=== PATIENT | male | born 1990 | race Caucasian/White ===

== ENCOUNTER 2020-01-01 13:45 | Emergency (ER) | payer OTHER, SELFPAY ==
--- NOTE | ~2020-01-01 | XR_ITS ---
EXAMINATION: XR chest 2V DATE: 01/01/2020 14:36 INDICATION: Weight loss TECHNIQUE: Frontal and lateral views of the chest are obtained COMPARISON: None available FINDINGS: The lungs are free of acute opacities. There is no pleural effusion or pneumothorax. The ca rdiomediastinal silhouette is normal. The visualized bones and soft tissues are unremarkable. IMPRESSION: 1. No acute cardiopulmonary abnormality. Reviewed, dictated and finalized at location A.
[2020-01-01 13:48] VITALS: BP 125/78; PULSE 73; RESP 18; TEMP 36.5; O2SAT 98
--- NOTE | 2020-01-01 14:00 | ED.ANXIETY ---
HPI - Anxiety General Chief Complaint: Anxiety Stated Complaint: Anxiety, weight loss Time Seen by Provider: 01/01/20 14:00 Source: patient Mode of arrival: ambulatory Limitations: no limitations History of Present Illness HPI narrative: Patient is a 29-year-old male with a history of anxiety who presents for evaluation of weight loss. Patient states he has had an unintended 15 pound weight loss over the past month. He states he does seem to have a decreased appetite due to the anxiety, but denies any increase in strenuous or exertional activity. States he is fairly active with daily hiking and walking. Patient denies any pain. No headache, chest pain, abdominal pain. He denies any nausea, vomiting or urinary symptoms. He denies any weakness or lethargy. States he is sleeping well. He reports that he is here to obtain routine blood work because the [facility] he follows with in [facility], and patient has been to many urgent care is to have also denied their ability to get any blood work for the patient. Patient denying any cough, fever or shortness of breath. No history of cancer. He has not noticed any swelling, lumps, or bumps anywhere. Related Data Home Medications Medication Instructions Recorded Confirmed No Home Medications 01/01/20 01/01/20 Allergies Allergy/AdvReac Type Severity Reaction Status Date / Time amoxicillin Allergy Hives Verified 01/01/20 13:59 Review of Systems Review of Systems: Narrative: CONSTITUTIONAL: Denies fever, chills, or sweats. EYES: Denies visual changes, redness, or discharge. ENT: Denies rhinorrhea, congestion, sore throat, or otalgia. CARDIOVASCULAR: Denies chest pain, palpitations, or edema. RESPIRATORY: Denies cough or dyspnea. GASTROINTESTINAL: Denies abdominal pain, nausea, vomiting, or diarrhea. GENITOURINARY: Denies dysuria or hematuria. SKIN: Denies rash or itching. MUSCULOSKELETAL: Denies back pain, joint pain, or myalgia. NEUROLOGIC: Denies headache, numbness, or weakness. PSYCHIATRIC: Reports anxiety without depression PMFSH Past Medical History Medical History Anxiety Social History Social History (Updated 01/01/20 @ 14:42 by [place] MD) Smoking status: Never smoker Alcohol intake: current Alcohol use details: Social, rarely Substance use: never Gender identity (if verbalized by the patient): Male Exam Narrative: Exam Narrative: GENERAL: Awake, alert, conversant HEAD: Normocephalic, atraumatic. EYES: PERRLA and EOMI. ENT: Nares clear, no rhinorrhea or epistaxis. Mucous membranes moist. NECK: Supple. No thyromegaly. CHEST: No respiratory distress, breathing even and non labored HEART: Regular rate, sinus rhythm ABDOMEN:Non distended, non tender EXTREMITIES: Normal range of motion. No edema. SKIN: Warm, dry, no rash. NEURO:No focal deficits. Alert and oriented x3. . EOMs intact without nystagmus. No facial droop/asymmetry noted bilaterally. Grimace intact. Intact sensation in face. Hearing intact bilaterally. Strength 5/5 bilateral upper extremities. Strength 5/5 bilateral lower extremities. Reflexes 2+ patellar. Ambulatory with a narrow base, steady gait, no ataxia. Course Vital Signs Vital signs: Vital Signs Temperature 36.5 C 01/01/20 13:48 Pulse Rate 73 01/01/20 13:48 Respiratory Rate 18 01/01/20 13:48 Blood Pressure 125/78 01/01/20 13:48 Pulse Oximetry 98 01/01/20 13:48 Temperature 36.5 C 01/01/20 13:48 Pulse Rate 59 L 01/01/20 15:03 Respiratory Rate 14 01/01/20 15:03 Blood Pressure 113/66 01/01/20 15:03 Pulse Oximetry 99 01/01/20 15:03 MDM - Anxiety MDM Narrative Medical decision making narrative: Patient presented for evaluation of unintended weight loss. He does report increase in anxiety which he deals with and has a physician he follows with for this. Due
--- NOTE | 2020-01-01 14:26 | ECG_ITS ---
Measurements Intervals [place] Rate: 55 P: 59 AL: 185 QRS: 72 QRSD: 105 T: 5 QT: 367 QTc: 351 Interpretive Statements SINUS BRADYCARDIA BORDERLINE ECG Electronically Signed On 01-01-2020 20:06:58 CDT by Arnoldo Francis D.O.
[2020-01-01 15:03] VITALS: BP 113/66; PULSE 59; RESP 14; O2SAT 99
[2020-01-01 15:14] LABS: Basophils Absolute Auto 0.1 K/mm3 (0.0-0.1); Basophils Percent Auto 0.8 % (0.2-1.2); Eosinophils Absolute Auto 0.1 K/mm3 (0-0.3); Eosinophils Percent Auto 1.1 % (0-4.4); Hematocrit 45.2 % (42.0-52.0); Hemoglobin 15.7 g/dL (14.0-18.0); Immature Granulocyte Absolute 0.01 K/mm3 (0.00-0.031); Immature Granulocyte Percent A 0.2 % (0-0.5); Lymphocytes Absolute Auto 1.56 K/mm3 (0.9-3.2); Lymphocytes Percent Auto 24.3 % (18.3-44.2); Mean Corpuscular HGB Conc 34.7 g/dl (32-36); Mean Corpuscular Hemoglobin 29.6 pg (26-34); Mean Corpuscular Volume 85.3 fl (80-100); Mean Platelet Volume 10.3 fl (7.4-10.4); Monocytes Absolute Auto 0.6 K/mm3 (0.1-0.6); Monocytes Percent Auto 8.6 % (2.6-8.5); Neutrophils Absolute Auto 4.2 K/mm3 (1.3-6.7); Platelet Count Result 206 k/mm3 (150-375); White Blood Count 6.4 K/mm3 (4.5-10.0)
[2020-01-01 15:24] LABS: Add Urine Microscopic? NO; Appearance Urine Clear (Clear); Bilirubin Urine Negative (Negative); Blood Urine Negative (Negative); Color Urine Colorless (Yellow); Glucose Urine UA Negative (Negative); Ketones Urine Negative (Negative); Leukocyte Esterase Ur Negative LEU/UL (Negative); Nitrate Urine Negative (Negative); Protein Urine Negative (Negative); Urobilinogen Urine Negative mg/dL (<2.0)
[2020-01-01 15:25] LABS: Specific Grav Ur 1.003 (1.001-1.035)
[2020-01-01 15:27] LABS: Alanine Aminotransferase 18 U/L (4-50); Albumin Level 4.5 g/dL (3.5-5.1); Alkaline Phosphatase 65 U/L (38-126); Anion Gap 9 mmol/L (8-16); Aspartate Amino Transferase 21 U/L (17-59); Bilirubin,Total 0.3 mg/dL (0.2-1.3); Blood Urea Nitrogen 13 mg/dL (9-20); Calcium 9.1 mg/dL (8.4-10.2); Carbon Dioxide 28 mmol/L (22-30); Chloride 103 mmol/L (98-107); Estimated CRCL calculation 111 ml/min; Estimated Glomerular Filt Rate > 60; Glucose 94 mg/dL (75-110); Potassium 3.8 mmol/L (3.4-5.0); Sodium 140 mmol/L (137-145)
[2020-01-01 15:57] LABS: Thyroid Stimulating Hormone 0.972 uIU/mL (0.465-4.680)
[2020-01-01 17:03] VITALS: BP 123/77; PULSE 56; RESP 18; O2SAT 99
== END 2020-01-01 17:04 | disposition home or self-care (01) ==
PROVIDERS: Emergency Provider Emergency Medicine
DX: R63.4 Abnormal weight loss (principal); F41.9 Anxiety disorder, unspecified; R00.1 Bradycardia, unspecified
CPT/HCPCS: 36415; 71046; 80053; 81003; 84443; 85025; 93005; 99283